=== PATIENT | male | born 1975 | race Caucasian/White ===

== ENCOUNTER 2023-01-26 06:15 | Day surgery (SDC) | payer BC ==
[~2023-01-26] VITALS: Ht 182.9 cm; Wt 93.0 kg
[2023-01-26] MEDS ORDERED: ceFAZolin SODIUM 3 GM in D5W 100 ML IV ONE (07:00)
[2023-01-26] MEDS ORDERED: LR 1,000 ML IV.SOLN IV ONE (08:30)
[2023-01-26] MEDS ORDERED: MEPERIDINE 50 MG/ML VIAL ONE (08:30)
[2023-01-26] MEDS ORDERED: DEXAMETHASONE SOD PHOSPHATE 4 MG/ML VIAL ONE (08:30)
[2023-01-26] MEDS ORDERED: PROPOFOL 200MG/ 20ML VIAL (DIPRIVAN) IV ONE (08:30)
[2023-01-26] MEDS ORDERED: fentaNYL CITRATE/PF 100 MCG/2 ML AMP ONE (08:30)
[2023-01-26] MEDS ORDERED: KETOROLAC TROMETHAMINE 30 MG VIAL ONE (08:30)
[2023-01-26] MEDS ORDERED: SUGAMMADEX SODIUM 200 MG/2 ML VIAL IV ONE (08:30)
[2023-01-26] MEDS ORDERED: BUPIVACAINE /PF 0.5% 30 ML VIAL ONE (08:30)
[2023-01-26] MEDS ORDERED: SEVOFLURANE 15 MIN GAS INH ONE (08:30)
[2023-01-26] MEDS ORDERED: ROCURONIUM BROMIDE 10 MG/ML (ZEMURON) ONE (08:30)
[2023-01-26] MEDS ORDERED: SUCCINYLCHOLINE CHLORIDE 20 MG/ML(QUELICIN) ONE (08:30)
[2023-01-26] MEDS ORDERED: METOCLOPRAMIDE HCL 10 MG/2 ML VIAL IVP PRN (09:30)
[2023-01-26] MEDS ORDERED: MEPERIDINE HCL/PF 25 MG/ML DISP.SYRIN IVP PRN (09:30)
[2023-01-26] MEDS ORDERED: KETOROLAC TROMETHAMINE 30 MG VIAL IVP PRN (09:30)
[2023-01-26] MEDS ORDERED: ONDANSETRON HCL 4 MG/2 ML VIAL IVP PRN (09:30)
[2023-01-26] MEDS ORDERED: HYDROmorphone 1 MG/ML INJ. CARTRIDGE IVP PRN (09:30)
[2023-01-26] MEDS ORDERED: LR 1,000 ML IV SCH (09:30)
[2023-01-26 09:48] VITALS: O2SAT 97
[2023-01-26 14:46] VITALS: BP_SYST 131; PULSE 100; RESP 18
== END 2023-01-26 14:10 | disposition home or self-care (01) ==
LOC: SDS 06:15 → SMU 06:16 → SDS 14:10
PROVIDERS: ATTEND Surgery
DX: K38.8 Other specified diseases of appendix (principal); K63.9 Disease of intestine, unspecified; K58.8 Other irritable bowel syndrome; K42.9 Umbilical hernia without obstruction or gangrene; K58.9 Irritable bowel syndrome, unspecified; K21.9 Gastro-esophageal reflux disease without esophagitis; Z79.899 Other long term (current) drug therapy
CPT/HCPCS: 87081; 44970; 44238; 88302; 88304; J3490 ×2; J0690; J1100; J1885; J2704; J0330; J3010; J2175; J7060; J7120; C1727